=== PATIENT | female | born 1950 | race Caucasian/White ===

== ENCOUNTER 2017-04-23 07:45 | Outpatient (CLI) | payer MEDICARE, BC | END 2017-04-23 07:46 | disposition home or self-care (01) | LOC: BICMAMMO 07:45 | PROVIDERS: ATTEND Family Medicine | DX: Z12.31 Encounter for screening mammogram for malignant neoplasm of breast (principal); Z80.3 Family history of malignant neoplasm of breast | CPT/HCPCS: 77063; G0202; 77067 ==

== ENCOUNTER 2018-05-14 13:34 | Outpatient (CLI) | payer MEDICARE, BC | END 2018-05-14 13:35 | disposition home or self-care (01) | LOC: BICMAMMO 13:34 | PROVIDERS: ATTEND Family Medicine | DX: Z12.31 Encounter for screening mammogram for malignant neoplasm of breast (principal); Z80.3 Family history of malignant neoplasm of breast | CPT/HCPCS: 77063; 77067 ==

== ENCOUNTER 2019-07-12 09:56 | Outpatient (CLI) | payer MEDICARE, BC ==
--- NOTE | 2019-07-12 12:03 | MMO ---
Bilateral MAMMO Bilat Screen [facility]. CLINICAL HISTORY: Patient is 68 years old and is seen for screening. The patient has the following family history of breast cancer: cousin female, malignant (generic) and maternal aunt, malignant (generic). The patient has no personal history of cancer. The patient has a history of left Cyst Aspiration in February, - benign - abscess. VIEWS: The views performed were: bilateral craniocaudal with tomosynthesis and bilateral mediolateral oblique with tomosynthesis. FILMS COMPARED: The present examination has been compared to prior imaging studies performed at [facility] on 03/08/2015, 03/12/2016, 04/23/2017 and 05/14/2018. This study has been interpreted with the assistance of computer-aided detection. MAMMOGRAM FINDINGS: There are scattered fibroglandular densities. There are stable intramammary lymph nodes seen in both breasts. There are no suspicious masses, suspicious calcifications, or new areas of architectural distortion. IMPRESSION: THERE IS NO MAMMOGRAPHIC EVIDENCE OF MALIGNANCY. A ROUTINE FOLLOW-UP MAMMOGRAM IN 1 YEAR IS RECOMMENDED. THE RESULTS OF THIS EXAM WERE SENT TO THE PATIENT. ACR BI-RADS Category 2 - Benign finding MAMMOGRAPHY NOTE: 1. A negative mammogram report should not delay a biopsy if a dominant of clinically suspicious mass is present. 2. Approximately 10% to 15% of breast cancers are not detected by mammography. 3. Adenosis and dense breasts may obscure an underlying neoplasm. Reported by: DION CHU MD Electonically Signed: [id number]
== END 2019-07-12 09:57 | disposition home or self-care (01) ==
LOC: BICMAMMO 09:56
PROVIDERS: ATTEND Family Medicine
DX: Z12.31 Encounter for screening mammogram for malignant neoplasm of breast (principal); Z80.3 Family history of malignant neoplasm of breast
CPT/HCPCS: 77063; 77067

== ENCOUNTER 2020-07-16 11:02 | Outpatient (CLI) | payer MEDICARE, BC | END 2020-07-16 11:03 | disposition home or self-care (01) | LOC: BICMAMMO 11:02 | PROVIDERS: ATTEND Family Medicine | DX: Z12.31 Encounter for screening mammogram for malignant neoplasm of breast (principal); Z80.3 Family history of malignant neoplasm of breast | CPT/HCPCS: 77063; 77067 ==

== ENCOUNTER 2021-08-08 11:20 | Outpatient (CLI) | payer MEDICARE, BC | END 2021-08-08 11:21 | disposition home or self-care (01) | LOC: BICMAMMO 11:20 | PROVIDERS: ATTEND Family Medicine | DX: Z12.31 Encounter for screening mammogram for malignant neoplasm of breast (principal); Z98.890 Other specified postprocedural states; Z80.3 Family history of malignant neoplasm of breast | CPT/HCPCS: 77063; 77067 ==

== ENCOUNTER 2022-07-29 09:11 | Outpatient (CLI) | payer MEDICARE, BC ==
[2022-07-29] MEDS ORDERED: Iopamidol-370 76% 500 ML MDV (1 ML CHARGE) ONE (10:06)
== END 2022-07-29 09:12 | disposition home or self-care (01) ==
LOC: CT 09:11
PROVIDERS: ATTEND Internal Medicine Gastroenterology
DX: K21.9 Gastro-esophageal reflux disease without esophagitis (principal); K57.92 Diverticulitis of intestine, part unspecified, without perforation or abscess without bleeding; K60.4 Rectal fistula; K57.30 Diverticulosis of large intestine without perforation or abscess without bleeding; K44.9 Diaphragmatic hernia without obstruction or gangrene
CPT/HCPCS: 74177

== ENCOUNTER 2023-11-17 10:56 | Outpatient (CLI) | payer MEDICARE | END 2023-11-17 10:57 | disposition home or self-care (01) | LOC: BICMAMMO 10:56 | PROVIDERS: ATTEND Family Medicine | DX: Z12.31 Encounter for screening mammogram for malignant neoplasm of breast (principal); Z80.3 Family history of malignant neoplasm of breast | CPT/HCPCS: 77063; 77067 ==